=== PATIENT | male | born 2000 | race Caucasian/White ===

== ENCOUNTER 2018-02-17 18:06 | Emergency (ER) | payer OTHER, BC ==
[2018-02-17 18:14] VITALS: BP 138/72; PULSE 89; TEMP 98; BMI 225.7
--- NOTE | 2018-02-17 19:16 | PDOC ---
History of Present Illness - General Chief Complaint: Laceration Stated Complaint: LACERATION TO LIP Time Seen by Provider: 02/17/18 18:47 History Source: Patient Exam Limitations: No Limitations - History of Present Illness Initial Comments: 02/17/18 19:13 Was playing basketball, was elbowed in the right upper lip incurring a laceration to his right upper lip extending to [place] border and into inner aspect. Not through and through, no dental injury, no LOC Occurred: reports: just prior to arrival Severity: reports: mild, moderate Pain Location: reports: face Method of Injury: Yes: direct blow Modifying Factors: improves with: None Loss of Consciousness: no loss of consciousness Associated Symptoms (Fall): denies symptoms Past History - Travel Traveled outside of the country in the last 30 days: No Close contact w/someone who was outside of country & ill: No - Past Medical History Allergies/Adverse Reactions: Allergies Allergy/AdvReac Type Severity Reaction Status Date / Time No Known Allergies Allergy Verified 02/17/18 18:10 Home Medications: Ambulatory Orders NK [No Known Home Medication] 02/17/18 COPD: No CHF: No - Immunization History Immunization Up to Date: Yes - Suicide/Smoking/Psychosocial Hx Smoking History: Never smoked Have you smoked in the past 12 months: No Information on smoking cessation initiated: No Hx Alcohol Use: No Drug/Substance Use Hx: No Substance Use Type: None Review of Systems - Review of Systems Able to Perform ROS?: Yes Is the patient limited [place] proficient: Yes Constitutional: Yes: See HPI. No: Symptoms Reported HEENTM: Yes: Symptoms Reported, See HPI, Mouth Swelling. No: Dental Problems Respiratory: No: Symptoms reported Integumentary: Yes: Symptoms Reported, See HPI, Other (1 cm lac to upper lip) All Other Systems: Reviewed and Negative *Physical Exam - Vital Signs Last Vital Signs Temp Pulse Resp BP Pulse Ox 98.0 F 89 16 138/72 100 02/17/18 18:10 02/17/18 18:10 02/17/18 18:10 02/17/18 18:10 02/17/18 18:10 - Physical Exam General Appearance: Yes: Nourished, Appropriately Dressed, Apparent Distress, Mild Distress HEENT: positive: JAYNA, TMs Normal (no hemotympanum, no drainage from nose or ears, no evidence of skull fracture) Neck: positive: Supple. negative: Tender Extremity: positive: Normal Capillary Refill Integumentary: positive: Normal Color, Other (1 cm laceration from upper right kaur borderintom gingival surface. Not thru and thru, no dental injury . ) Neurologic: positive: coordinator skill training program II-XII NML intact, Fully Oriented, Alert, Normal Mood/ Affect, Normal Response, Motor Strength 5/5 Procedures - Laceration/Wound Repair Right Lip Wound Length: to 2.5 cm Wound Explored: clean Wound's Depth, Shape: superficial Irrigated w/ Saline: Yes Betadine Prep: Yes Anesthesia: 1% Lidocaine w/ Epi Wound Repaired With: Sutures Suture Size/Type: 5:0, other (gut ) Number of Sutures: 4 Progress Note - Progress Note Progress Note: Upper lip laceration, repaired *DC/Admit/Observation/Transfer Diagnosis at time of Disposition: Laceration of lip Qualifiers: Encounter type: initial encounter Qualified Code(s): S01.511A - Laceration without foreign body of lip, initial encounter - Discharge Dispostion Disposition: HOME Condition at time of disposition: Stable Decision to Admit order: No - Referrals - Patient Instructions Printed Discharge Instructions: DI for Laceration Repair Additional Instructions: Rest, drink lots of fluids: Teas, water, soups Saltwater gargles/ keep mouth clean and rinse after each meal Avoid hard chewing foods, stick to ice cream, Jell-O, yogurt etc. Tylenol or Motrin for fever and pain Complete all medication as prescribed Followup with private physician in one to 2 days as needed Return to emergency department for worsened symptoms, fevers, swelling to face or worsened pain - Post Discharge Activity Forms/Work/School Notes: Back to School
== END 2018-02-17 19:43 | disposition home or self-care (01) ==
LOC: JERFT 18:06
PROC: 0CQ03ZZ Repair Upper Lip, Percutaneous Approach (ICD-10-PCS; principal; 2018-02-17)
DX: S01.511A Laceration without foreign body of lip, initial encounter (principal); W50.0XXA Accidental hit or strike by another person, initial encounter; Y93.67 Activity, basketball; Y92.310 Basketball court as the place of occurrence of the external cause; Y99.8 Other external cause status
CPT/HCPCS: 99281-25

== ENCOUNTER 2022-06-10 01:42 | Emergency (ER) | payer OTHER, BC ==
[2022-06-10 01:56] VITALS: BP 151/78; PULSE 88; RESP 18; TEMP 98; BMI 24.1
[2022-06-10] MEDS ORDERED: IBUPROFEN 600 MG TABLET (FP) PO ONE ×2 (02:49→02:50)
== END 2022-06-10 04:10 | disposition home or self-care (01) ==
LOC: JER 01:42
PROC: 0HQ1XZZ Repair Face Skin, External Approach (ICD-10-PCS; principal; 2022-06-10)
DX: S01.81XA Laceration without foreign body of other part of head, initial encounter (principal); M25.531 Pain in right wrist; W01.0XXA Fall on same level from slipping, tripping and stumbling without subsequent striking against object, initial encounter; Y93.67 Activity, basketball
CPT/HCPCS: 73110-TC-RT-FY; 99283-25

== ENCOUNTER 2022-06-18 19:32 | Emergency (ER) | payer OTHER, BC ==
[2022-06-18 19:43] VITALS: BP 127/71; PULSE 68; RESP 20; TEMP 98.7; BMI 24.1
[2022-06-18] MEDS ORDERED: BACITRACIN ZINC 15 GM TUBE TOPICAL OINTMENT TP ONE (20:04)
[2022-06-18] MEDS ORDERED: BACITRACIN 0.9 GM PACKET ONE (20:05)
== END 2022-06-18 20:11 | disposition home or self-care (01) ==
LOC: JER 19:32 → JERFT 19:32
DX: Z48.02 Encounter for removal of sutures (principal)
CPT/HCPCS: 99281-25